=== PATIENT | male | born 1950 | race Hispanic/Latino ===

== ENCOUNTER → 2018-07-29 | Outpatient (CLI) | payer OTHER | END | disposition home or self-care (01) | LOC: OIH 13:43 | PROVIDERS: ATTEND Internal Medicine | DX: I10 Essential (primary) hypertension (principal); M45.2 Ankylosing spondylitis of cervical region; I70.0 Atherosclerosis of aorta | CPT/HCPCS: 71046 ==

== ENCOUNTER → 2019-07-01 | Outpatient (CLI) | payer OTHER | END | disposition home or self-care (01) | LOC: OIH 09:10 | PROVIDERS: ATTEND Internal Medicine | DX: I10 Essential (primary) hypertension (principal) | CPT/HCPCS: 71046 ==

== ENCOUNTER → 2020-11-04 | Outpatient (CLI) | payer OTHER | END | disposition home or self-care (01) | LOC: OIH 15:14 | PROVIDERS: ATTEND Internal Medicine | DX: I25.10 Atherosclerotic heart disease of native coronary artery without angina pectoris (principal); M77.32 Calcaneal spur, left foot; M85.80 Other specified disorders of bone density and structure, unspecified site | CPT/HCPCS: 73620 ==

== ENCOUNTER → 2024-09-18 | Outpatient (CLI) | payer OTHER ==
--- NOTE | 2024-09-18 17:05 | HMCIMG ---
LUMBAR SPINE 2-3VWS HISTORY: Sciatica COMPARISON: None FINDINGS: 3 images of the lumbar spine were obtained. There is lumbar spine spondylosis. Vascular calcifications are seen. There is straightening of normal lordotic curvature which may be related to muscle spasm or positioning. No loss of vertebral height is seen. No fracture or dislocation is seen. Degenerative changes are seen. IMPRESSION: 1. No fracture is seen.
== END | disposition home or self-care (01) ==
LOC: RAH 14:48
PROVIDERS: ATTEND Internal Medicine
DX: M47.26 Other spondylosis with radiculopathy, lumbar region (principal); M54.32 Sciatica, left side; M79.605 Pain in left leg; R29.898 Other symptoms and signs involving the musculoskeletal system
CPT/HCPCS: 72100